=== PATIENT | female | born 1970 | race Caucasian/White ===

== ENCOUNTER 2024-09-08 10:00 | Day surgery (SDC) | payer OTHER, SELFPAY ==
[2024-09-06 12:26] LABS: Hemoglobin 13.1 g/dL (12.0-15.0); Mean Corp Hgb Conc 32.8 g/dL (32-36); Mean Corpuscular Hgb 28.7 pg (27.0-32.0); Mean Corpuscular Volume 87.5 fL (81-99); Mean Platelet Vol. 9.8 fl (6.2-12.0); Platelet Count 244 K/mm3 (150-450); RBC Distribution Width CV 13.5 % (11.6-14.6); RBC Distribution Width SD 42.8 fl (35.1-43.9); Red Blood Count 4.57 M/mm3 (4.2-5.4); White Blood Count 9.3 K/mm3 (4.4-11.0)
[2024-09-06 13:14] LABS: Anion Gap 5 (5-15); BUN 18 mg/dL (7-18); BUN/Creat Ratio 21.6 RATIO (10-20); Calcium,Total 9.3 mg/dL (8.5-10.1); Chloride 103 mmol/L (98-107); Creatinine, Serum 0.84 mg/dL (0.55-1.02); EST Glomerular Filtration Rate 75 mL/min (>60); Est Glom Filt Rate - Afr Amer 91 mL/min (>60); Glucose 84 mg/dL (74-106); Potassium 4.3 mmol/L (3.5-5.1); Sodium Level 136 mmol/L (136-145)
[2024-09-08] VITALS (8 sets, daily range): BP systolic 119–144; BP diastolic 60–67; PULSE 47–60; RESP 16; TEMP 36.3–36.5; O2SAT 96–99; BMI 41.1
[2024-09-08 10:30] LABS: Internal QC Validated? YES +Cl - CLEAR BKGD; Pregnancy, Urine Negative Negative
[2024-09-08] MEDS: Acetaminophen 500 MG Tablet 1000 MG PO (10:32)
[2024-09-08] MEDS: Ketorolac 30 MG/ML Syringe IV (10:32)
[2024-09-08] MEDS: Lidocaine 1% /Epi 1:100 (20ml) 20 ML Vial (11:11)
== END 2024-09-08 12:40 | disposition home or self-care (01) ==
LOC: SDC 10:01 → AC 10:03
PROVIDERS: PCP Internal Medicine; Referring Provider Obstetrics & Gynecology; Visit Provider Obstetrics & Gynecology
PROC: 0UB98ZZ Excision of Uterus, Via Natural or Artificial Opening Endoscopic (ICD-10-PCS; CPT 58558; principal; 2024-09-08 11:20)
DX: N71.1 Chronic inflammatory disease of uterus (principal); N95.0 Postmenopausal bleeding; I10 Essential (primary) hypertension; R93.89 Abnormal findings on diagnostic imaging of other specified body structures; E03.9 Hypothyroidism, unspecified; Z87.19 Personal history of other diseases of the digestive system; F41.9 Anxiety disorder, unspecified; F32.A Depression, unspecified
CPT/HCPCS: 58558; 00952; 36415; 80048; 81025; 85027; 88305; 93005; A4216; J2405